=== PATIENT | female | born 2000 | race Hispanic/Latino ===

== ENCOUNTER 2019-03-03 06:55 | Day surgery (SDC) | payer OTHER ==
[2019-03-03] MEDS ORDERED: NACL 0.9% 500 ML 500 ML IV SCH (08:00)
[2019-03-03] MEDS ORDERED: NITROSTAT SL ONE (08:26)
[2019-03-03] MEDS ORDERED: ATROPINE 0.1% (CARDIAC) ONE (08:26)
[2019-03-03 09:27] VITALS: BP 119/72
--- NOTE | 2019-03-03 09:35 | Short Stay Summary ---
Short Stay Documentation Date of service: 03/03/19 - History H&P: obtained from office - Allergies and Medications Current Medications: Allergies ANASTESIA Adverse Reaction (Uncoded 03/03/19 06:56) Nausea Home Medications Medication Instructions Recorded Confirmed Last Taken Type FLUoxetine [PROzac] 20 mg PO DAILY 03/03/19 03/03/19 03/02/19 History 20mg Active Medications Sodium Chloride (Nacl 0.9% 500 Ml) 500 mls @ 50 mls/hr IV DIRECT DENISSE Last Admin: 03/03/19 07:32 Dose: 50 mls/hr Documented by: - Physical exam General appearance: no acute distress Integumentary: no rash HEENT: Atraumatic Lungs: Clear to auscultation Breasts: deferred Heart: Regular rate Gastrointestinal: normal Female Genitourinary: deferred Rectal Exam: deferred Extremities: no ischemia Neurological: Normal gait - Brief post op/procedure progress note Date of procedure: 03/03/19 Pre-op diagnosis: Syncope Post-op diagnosis: same Procedure: TTT Anesthesia: none Findings: See report Surgeon: LULU TURNER Estimated blood loss: none Pathology: none Condition: stable - Hospital course Hospital course: Uneventful - Disposition Condition at discharge: Good Disposition: DC-01 TO HOME OR SELFCARE Short Stay Discharge Plan Activity: other (Avoid prolong standing; Avoid rapid changes in position from sitting to standing) Weight Bearing Status: Weight Bear as Tolerated Diet: regular, other ([place] fluid and salt intake) Durable Medical Equipment Needed Upon Discharge: other (Consider wearing compressions hoses) Follow up with: SHANA HERNANDEZ MD [Primary Care Provider] - 7 Days
--- NOTE | 2019-03-03 23:21 | Tilt Table Report ---
TILT TABLE TEST INDICATION: Syncope. ORDERING PHYSICIAN: Dr. Maritza Flores. DESCRIPTION OF PROCEDURE: After obtaining written consent, the patient was brought to the brush clearing laborer area. The patient was secured to the tilt table test. The baseline blood pressure was 107/66 with a heart rate of 64 beats per minute. The patient was tilted to 85 degrees from horizontal. The patient was maintained in the upright position for 10 minutes. At the end of the 10 minutes, the patient's blood pressure was 106/77 with a heart rate of 91 beats per minute. Before the patient was given nitroglycerin, her heart rate started increasing and went all the way up to a maximum of 155 beats per minute. Her blood pressure at that time was 135/97. The patient did feel dizzy at that time. At minute 13-14, the patient did lose consciousness. The patient was brought back to the horizontal. The patient's blood pressure at that time was 130/87 and her heart rate slowed down to 107, sinus tachycardia. IMPRESSION: No evidence of a cardioinhibitory or vasodepressor response; however, there is evidence of significant sinus tachycardia with prolonged upright position. The patient did experience syncope after prolonged standing. There is, however, no pausing or bradyarrhythmias. There is also no significant drop in blood pressure. RECOMMENDATION: The patient is recommended to avoid long standing. The patient also recommended to consider wearing compression hoses. The patient was advised liberal fluid and salt intake. The patient was advised avoidance of thrift and fast position changes from sitting to standing. The patient will follow up with her referring hat blocking operator. [facility]# [id number] EL[place]/LAURA
== END 2019-03-03 09:41 | disposition home or self-care (01) ==
LOC: CATHLABREC 06:55
PROVIDERS: ATTEND Internal Medicine
DX: R55 Syncope and collapse (principal); F32.9 Major depressive disorder, single episode, unspecified; F41.9 Anxiety disorder, unspecified; Z79.899 Other long term (current) drug therapy; Z88.8 Allergy status to other drugs, medicaments and biological substances; Z87.440 Personal history of urinary (tract) infections; Z98.890 Other specified postprocedural states
CPT/HCPCS: 93660; J7040; J0461